=== PATIENT | male | born 1995 ===

== ENCOUNTER 2020-04-05 14:25 | Outpatient (CLI) | payer MEDICAID ==
[~2020-04-05] VITALS: Ht 182.9 cm; Wt 99.8 kg
[2020-04-05 14:43] VITALS: BP 139/68
--- NOTE | 2020-04-05 17:15 | Consultation ---
DATE OF CONSULTATION: 04/05/2020 GASTROENTEROLOGY CONSULTATION CONSULTING PHYSICIAN: Willian White MD. HISTORY OF PRESENT ILLNESS: A 24-year-old male with numerous medical problems and complaints referred to us for chronic GERD. PAST MEDICAL HISTORY: 1. Diabetes. 2. GERD. 3. Depression. 4. IBS. 5. Hypertension. 6. Pancreatitis at age 15. MEDICATIONS: See medication reconciliation list. FAMILY HISTORY: Noncontributory. SOCIAL HISTORY: The patient denies any tobacco, alcohol, or drug abuse. ALLERGIES: Clarithromycin. REVIEW OF SYSTEMS: Positive for GERD, constipation, diarrhea, minimum rectal bleeding on and off, nausea, bloating. Last endoscopy and colonoscopy about 9 years ago. PHYSICAL EXAMINATION: VITAL SIGNS: Temperature 97.1, blood pressure 139/68, pulse 81, respirations 20. HEENT: Normocephalic and atraumatic. Sclerae are anicteric. NECK: Supple. No evidence of obvious lymphadenopathy. CARDIOVASCULAR: Regular rate and rhythm. Plus S1 and S2. LUNGS: Decreased breath sounds bilaterally based on supine exam. ABDOMEN: Soft, nontender. No rebound. No guarding. No peritoneal sign. EXTREMITIES: No cyanosis, no clubbing, no edema. ASSESSMENT AND PLAN: Chronic GERD, currently on PPI, but still having symptoms, was referred by primary care physician for endoscopy. Plan, add baclofen 20 mg nightly. The patient was informed of the risks and side effects of this medication. Plan to get authorization for endoscopy. The patient was advised to stop drinking too much diet Coke because that seems to be giving him some GI upset and diarrhea. Willian White M.D. DR: SHYAM JOB#: [id number] CC:
== END 2020-04-05 16:25 | disposition home or self-care (01) ==
LOC: PAN 14:25 → EDSEX 14:25 → PAN 16:25
DX: K21.9 Gastro-esophageal reflux disease without esophagitis (principal); E11.9 Type 2 diabetes mellitus without complications; F32.9 Major depressive disorder, single episode, unspecified; K58.9 Irritable bowel syndrome, unspecified; I10 Essential (primary) hypertension; Z88.8 Allergy status to other drugs, medicaments and biological substances
CPT/HCPCS: G0463